=== PATIENT | female | born 1940 | race Caucasian/White ===

== ENCOUNTER → 2021-11-12 | Outpatient (CLI) | payer MEDICARE ==
[~2021-11-12] MED LIST: AMLO5 PO; ASPI325 PO; Colace100 MG PO; FOLI400; GLIM4 PO; INSULANI SC; LISI20 PO; METF500 PO; METFORMIN PO; METO100ER PO; Norco 5-325 Ta1 EACH PO; PARO20 PO; PROP60 PO; Pravastatin Sod40 MG PO; SALS500 PO; SIMV40 PO; SPIHYD; TRIHYD253A PO; XARELTO20 MG PO
== END | disposition home or self-care (01) ==
LOC: LAB SHORT 15:41 → LAB 15:41
DX: N39.0 Urinary tract infection, site not specified (principal)
CPT/HCPCS: 87077; 87086; 87186

== ENCOUNTER 2021-12-12 12:14 | Emergency (ER) | payer MEDICARE ==
[~2021-12-12] VITALS: Ht 167.6 cm; Wt 81.7 kg
[2021-12-12 13:14] LABS: BASOPHILS ABSOLUTE AUTO 0.05 K/mm3 (0.00-0.23); BASOPHILS PERCENT AUTO 1 % (0-2); EOSINOPHILS ABSOLUTE AUTO 0.16 K/mm3 (0.00-0.68); EOSINOPHILS PERCENT AUTO 3 % (0-6); Hematocrit 33.4 % (33.0-51.0); Hemoglobin 10.9 g/dL (11.5-16.0); IMMATURE GRAN ABSOLUTE AUTO 0.03 K/mm3 (0.00-0.10); IMMATURE GRAN PERCENT AUTO 1 % (0-1); LYMPHOCYTES PERCENT AUTO 25 % (21-46); MONOCYTES ABSOLUTE AUTO 0.38 K/mm3 (0.16-1.47); MONOCYTES PERCENT AUTO 7 % (4-13); Mean Corpuscular HGB 31.5 pg (26.0-34.0); Mean Corpuscular HGB Conc 32.6 g/dL (31.5-36.5); Mean Corpuscular Volume 97 fL (80-100); Mean Platelet Volume 10.1 fL (9.1-12.4); NEUTROPHILS ABSOLUTE AUTO 3.22 K/mm3 (1.96-9.15); NEUTROPHILS PERCENT AUTO 63 % (41-73); Platelet Count 306 K/mm3 (150-400); RDW Coefficient Variation 14.5 % (11.7-14.2); RDW Standard Deviation 51.1 fL (35.1-46.3); Red Blood Cell Count 3.46 M/mm3 (3.80-5.20); White Blood Cell Count 5.14 K/mm3 (4.00-11.30)
[2021-12-12 13:35] LABS: Albumin, Blood 3.8 g/dL (3.4-5.0); Albumin/Globulin Ratio 1.1 (0.8-1.8); Bilirubin, Total 0.7 mg/dL (0.1-1.0); Creatinine, Blood 1.3 mg/dL (0.40-1.00); Globulin, Blood 3.5 g/dL (2.2-4.0); Potassium, Blood 3.8 mmol/L (3.5-5.5); Total Protein, Blood 7.3 g/dL (6.4-8.2)
[2021-12-12] MEDS ORDERED: LOSA50 PO (16:22)
== END 2021-12-12 17:04 | disposition home or self-care (01) ==
LOC: ER 12:14
PROVIDERS: Student in an Organized Health Care Education/Training Program
DX: S30.0XXA Contusion of lower back and pelvis, initial encounter (principal); I10 Essential (primary) hypertension; E11.9 Type 2 diabetes mellitus without complications; Z79.899 Other long term (current) drug therapy; W19.XXXA Unspecified fall, initial encounter
CPT/HCPCS: 36415; 74177; 80053; 85025; 86850; 86900; 86901; 99283-25; Q9967

== ENCOUNTER 2024-10-13 07:10 | Day surgery (SDC) | payer OTHER ==
[~2024-10-13] VITALS: Ht 167.6 cm; Wt 67.0 kg
[2024-10-13] VITALS (8 sets, daily range): BP systolic 114–171; BP diastolic 55–76
[~2024-10-13 07:10] MED LIST changes: +DYAZIDE 37.5-21 EACH PO; +LOSA50 PO
[2024-10-13] MEDS ORDERED: Verapamil HCL 2.5 MG/ML 2ML Injection ONE (07:11)
[2024-10-13] MEDS ORDERED: NS 250 ML IV ONE (07:11)
[2024-10-13] MEDS ORDERED: Heparin Sodium 1000 Units/ML 10ML MDV ONE (07:11)
[2024-10-13] MEDS ORDERED: NS 1,000 ML IV ONE ×2 (07:11→08:00)
[2024-10-13] MEDS ORDERED: Nitroglycerin 2 MG/20 ML BTL ONE (07:12)
[2024-10-13] MEDS ORDERED: FentaNYL Citrate 50 MCG/ML 2 ML Injection ONE (07:59)
[2024-10-13] MEDS ORDERED: Midazolam HCl 1MG / ML 2ML Vial ONE (08:00)
--- NOTE | 2024-10-13 12:07 | NUR ---
PATIENT AMBULATING AND VOIDING TO RESTROOM WITHOUT DIFFICULTY. RIGHT GROIN SITE C/D/I SOFT/NONTENDER, NO EVIDENCE OF BLEEDING. VSS ON RA. PATIENT DENYING ANY PAIN.
--- NOTE | 2024-10-13 12:35 | NUR ---
PATIENT DISCHARGED HOME AT THIS TIME. [facility] ABLE TO PROVIDE TRANSPORTATION HOME. RIGHT GROIN SITE AND RIGHT BRACHIAL SITE C/D/I SOFT/NONTENDER, NO EVIDENCE OF BLEEDING. VSS ON RA. DISCHARGE INSTRUCTIONS AND FOLLOW UP APPOINTMENT REVIEWED WITH PATIENT AND [facility], ALL QUESTIONS WERE ANSWERED. PIV REMOVED, CATHETER INTACT. PATIENT WHEELED TO HOSPITAL ENTRANCE. ALL PATIENT BELONGINGS LEFT WITH PATIENT.
== END 2024-10-13 12:22 | disposition home or self-care (01) ==
LOC: MHTC 07:10
DX: I35.0 Nonrheumatic aortic (valve) stenosis (principal); I25.10 Atherosclerotic heart disease of native coronary artery without angina pectoris; I12.9 Hypertensive chronic kidney disease with stage 1 through stage 4 chronic kidney disease, or unspecified chronic kidney disease; E11.22 Type 2 diabetes mellitus with diabetic chronic kidney disease; N18.30 Chronic kidney disease, stage 3 unspecified; E78.5 Hyperlipidemia, unspecified; Z95.5 Presence of coronary angioplasty implant and graft; Z79.84 Long term (current) use of oral hypoglycemic drugs; Z79.899 Other long term (current) drug therapy; Z88.8 Allergy status to other drugs, medicaments and biological substances; Z86.73 Personal history of transient ischemic attack (TIA), and cerebral infarction without residual deficits
CPT/HCPCS: 76937; 93456; 93457; 99152; 99153; C1769; C1894; J1644; J2250; J3010; J7030; J7050; Q9967

== ENCOUNTER → 2025-01-07 | Outpatient (CLI) | payer OTHER ==
[2025-01-07 15:03] LABS: Appearance, Urine Clear (Clear); Bilirubin, Urine Neg (Neg); Blood, Urine 1+ (Neg); Color, Urine Yellow (P-Yellow); Glucose Qualitative, Urine Neg (Neg); Ketones, Urine Neg (Neg); Leukocyte Esterase, Urine Neg (Neg); Nitrite, Urine Neg (Neg); Protein, Urine Neg (Neg); Urobilinogen, Urine NORM (Normal)
[2025-01-07 15:24] LABS: Bacteria Few /hpf; Red Blood Cells, Urine 0-2 /hpf (0-2); Squamous Epithelial Cells Few /hpf (Few); White Blood Cells, Urine 0-2 /hpf (0-5)
== END ==
LOC: LAB SHORT 11:30 → LAB 11:30
PROVIDERS: Hospitalist
DX: N18.2 Chronic kidney disease, stage 2 (mild) (principal); R82.90 Unspecified abnormal findings in urine
CPT/HCPCS: 81001

== ENCOUNTER → 2025-04-21 | Outpatient (CLI) | payer OTHER ==
[2025-04-21 19:21] LABS: Creatinine, Urine Random 62.6 mg/dL (27.00-270.00); Microalb/Creat Ratio UR, Rand 117.412 mg/g (0.000-30.000); Microalbumin, Random Urine 73.5 mg/L (0.000-20.000)
== END | disposition home or self-care (01) ==
LOC: LAB 15:50 → LAB SHORT 15:50
PROVIDERS: Family Medicine
DX: E11.22 Type 2 diabetes mellitus with diabetic chronic kidney disease (principal); N18.31 Chronic kidney disease, stage 3a; E11.69 Type 2 diabetes mellitus with other specified complication
CPT/HCPCS: 82043; 82570